=== PATIENT | female | born 1950 | race Caucasian/White ===

== ENCOUNTER 2016-12-02 12:06 | Emergency (ER) | payer MEDICARE ==
[~2016-12-02] VITALS: Ht 165.1 cm; Wt 75.0 kg
[~2016-12-02 12:06] MED LIST: AMLO5TAB2 PO; CARV6.252 PO; COZA100T PO; CYTO5TAB PO; ESTR0.5T PO; HYDR25TA5 PO; PROZ20CA11 PO; SYNT112T PO
[2016-12-02 12:07] VITALS: BP 204/82; PULSE 80; RESP 20; TEMP 98.5; O2SAT 96
[2016-12-02 12:16] VITALS: BP 193/82; PULSE 84; RESP 18
--- NOTE | 2016-12-02 12:16 | PD ---
Physical Exam Date Seen by Provider: December 02, 2016 Time Seen by Provider: 12:12 Narrative 66 YOWF C/O LBP MORE ON THE R. H/O CHRONIC BACK PAIN. NO N/V/D. NO ABD PAIN OR BLADDER PROBLEMS . PAIN 6/10 VS NOTED wating for bed asignment Data Data Last Documented VS Vital Signs Date Time Temp Pulse Resp B/P Pulse Ox O2 Delivery O2 Flow Rate FiO2 12/02/16 12:07 98.5 80 20 204/82 96 Room Air [facility] Medical Record Reviewed: No Supervised Visit with SUSAN: Bruce Rice December 02, 2016 12:15
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
[2016-12-02] MEDS ORDERED: [UNRECOGNIZED DRUG - REMARK] (12:27)
[2016-12-02] MEDS ORDERED: ROBA500T PO (12:29)
[2016-12-02 12:39] VITALS: BP 145/64; PULSE 72; RESP 20
== END 2016-12-02 12:47 | disposition home or self-care (01) ==
LOC: NEPK 12:06
DX: M54.5 Low back pain (principal); G89.29 Other chronic pain; M54.9 Dorsalgia, unspecified; I34.1 Nonrheumatic mitral (valve) prolapse; I10 Essential (primary) hypertension; E05.00 Thyrotoxicosis with diffuse goiter without thyrotoxic crisis or storm
CPT/HCPCS: 99283

== ENCOUNTER 2017-06-18 20:20 | Inpatient (IN) | payer MEDICARE ==
[~2017-06-18] VITALS: Ht 170.2 cm; Wt 80.9 kg
[2017-06-18] VITALS (10 sets, daily range): BP systolic 163–242; BP diastolic 74–120; PULSE 62–75; RESP 16–18; O2SAT 96–99
[~2017-06-18 20:20] MED LIST changes: -AMLO5TAB2 PO; +ASPI81TA23 PO; -CYTO5TAB PO; -ESTR0.5T PO; +EZET1TAB8 PO; -HYDR25TA5 PO; +IBUP1TAB5 PO; +LIOT5TAB3 PO; +TRIA37.5 PO
[2017-06-18] MEDS ORDERED: SODIUM CHLOR 0.9% 1000 ML INJ 1,000 ML IV ONE (20:45)
[2017-06-18] MEDS ORDERED: PROCHLORPERAZINE INJ 10 MG/2 ML VIAL IV PUSH ONE (20:45)
[2017-06-18] MEDS ORDERED: SODIUM CHLORIDE 0.9% FLUSH 10 ML FLUSH IVF PRN (20:45)
[2017-06-18] MEDS ORDERED: diphenhydrAMINE HCL 50 MG/ML VIAL IV PUSH ONE (20:45)
[2017-06-18] MEDS ORDERED: KETOROLAC TROMETHAMINE 30 MG/ML (IVP) VIAL IV PUSH ONE (20:45)
--- NOTE | 2017-06-18 20:45 | PD ---
HPI Chief Complaint: Cardiac Complaint Time Seen by Provider: 20:40 Travel History International Travel<30 days: No Contact w/Intl Traveler<30days: No Traveled to known affect area: No History of Present Illness HPI 58-year-old female with history of hypertension, presents to emergency department for evaluation. Pt reports last evening around 8pm she had a sudden onset of a frontal headache and left neck ache which caused her to check her blood pressure. It was elevated. Patient took her blood pressure medication as prescribed. Headache persisted throughout today and patient's blood pressure has been persistently elevated. She denies any chest pain or tightness. She states she has felt intermittently short of breath. She has had no nausea vomiting. No other focal deficits or weakness. Patient has no other symptoms to report. PFSH Past Medical History Autoimmune Disease: No Blood Disorders: No Heart Rhythm Problems: No Cancer: No Cardiac Catheterization: No Cardiovascular Problems: Yes (MITRAL VALVE PROLAPSE) High Cholesterol: No Congestive Heart Failure: No Diabetes: No Diminished Hearing: No Hypertension: Yes Psychiatric: No Reproductive: Yes (TOTAL HYSTERECTOMY 1974) Thyroid Disease: Yes (GRAVES DISEASE) Tetanus Vaccination: Unknown Influenza Vaccination: No Past Surgical History Abdominal Surgery: Yes Appendectomy: Yes Cardiac Surgery: Yes (CARIDAC CATH) Cholecystectomy: Yes Coronary Artery Bypass Graft: No Genitourinary Surgery: No Hysterectomy: Yes Pacemaker: No Social History Alcohol Use: Yes (1 GLASS WINE EVERY NIGHT) Tobacco Use: No Substance Use: No Allergies-Medications (Allergen,Severity, Reaction): Coded Allergies: morphine (Unverified Allergy, Severe, Agitated, 06/18/17) nitrofurantoin (Unverified Allergy, Severe, 06/18/17) oxycodone (Unverified Allergy, Severe, 06/18/17) penicillin G (Unverified Allergy, Severe, Hives, 06/18/17) valsartan (Unverified Allergy, Severe, Hives, 06/18/17) Reported Meds & Prescriptions Reported Meds & Active Scripts Active Reported Ezetimibe 10 Mg Tab 10 Mg PO HS Liothyronine (Liothyronine Sodium) 5 Mcg Tab 5 Mcg PO DAILY Triamterene-Hydrochlorothiazide 37.5-25 Mg Tab 1 Tab PO DAILY Aspirin EC (Aspirin) 81 Mg Tabdr 81 Mg PO DAILY Ibuprofen 400 Mg Tab 400 Mg PO Q8H PRN Cozaar (Losartan Potassium) 100 Mg Tab 100 Mg PO DAILY Synthroid (Levothyroxine Sodium) 112 Mcg Tab 112 Mcg PO DAILY Prozac (Fluoxetine HCl) 20 Mg Cap 20 Mg PO DAILY Carvedilol 6.25 Mg Tab 6.25 Mg PO BID Review of Systems Except as stated in HPI: all other systems reviewed are Neg Physical Exam Narrative GENERAL: Well-nourished female patient, sitting in bed in no acute distress. SKIN: Warm and dry. HEAD: Atraumatic. Normocephalic. EYES: No scleral icterus. No injection or drainage. EOMIs. PERRL ENT: No nasal bleeding or discharge. Mucous membranes pink and moist. NECK: Trachea midline. No JVD. CARDIOVASCULAR: Regular rate and rhythm. RESPIRATORY: No accessory muscle use. Clear to auscultation. Breath sounds equal bilaterally. GASTROINTESTINAL: Abdomen soft, non-tender, nondistended. Hepatic and splenic margins not palpable. MUSCULOSKELETAL: Extremities without clubbing, cyanosis, or edema. No obvious deformities. NEUROLOGICAL: Awake and alert. No obvious cranial nerve deficits. Motor grossly within normal limits. Five out of 5 muscle strength in the arms and legs. Normal speech. PSYCHIATRIC: Appropriate mood and affect; insight and judgment normal. Data Data Last Documented VS Vital Signs Date Time Temp Pulse Resp B/P (MAP) Pulse Ox O2 Delivery O2 Flow Rate FiO2 06/18/17 22:13 62 18 181/74 (109) 98 Room Air Orders Orders Electrocardiogram (06/18/17 20:43) Basic Metabolic Panel (Bmp) (06/18/17 20:43) Complete Blood Count With Diff (06/18/17 20:43) Magnesium (Mg) (06/18/17 20:43) Prothrombin Time / Inr (Pt) (06/18/17 20:43) Act Partial Throm Time (Ptt) (06/18/17 20:43) Ecg Monitoring (06/18/17 20:43) Bilateral Bp Monitoring (06/18/17 20:43) Iv Access Insert/Monitor (06/18/17 20:43) Oximetry (06/18/17 20:43) Oxygen Administration (06/18/17 20:43) Sodium Chloride 0.9% Flush (Ns Flush) (06/18/17 20:45) Ct Brain W/O Iv Contrast(Rout) (06/18/17 ) Ketorolac Inj (Toradol Inj) (06/18/17 20:45) Diphenhydramine Inj (Benadryl Inj) (06/18/17 20:45) Prochlorperazine Inj (Compazine Inj) (06/18/17 20:45) Sodium Chlor 0.9% 1000 Ml Inj (Ns 1000 M (06/18/17 20:45) Hydralazine Inj (Apresoline Inj) (06/18/17 22:00) Nicardipine Inj (Cardene Inj) (06/18/17 22:00) Labs Laboratory Tests Test 06/18/17 21:00 White Blood Count 9.8 TH/MM3 Red Blood Count 4.25 MIL/MM3 Hemoglobin 14.2 GM/DL Hematocrit 41.2 % Mean Corpuscular Volume 96.8 FL Mean Corpuscular Hemoglobin 33.4 PG Mean Corpuscular Hemoglobin Concent 34.5 % Red Cell Distribution Width 14.9 % Platelet Count 348 TH/MM3 Mean Platelet Volume 8.0 FL Neutrophils (%) (Auto) 66.6 % Lymphocytes (%) (Auto) 20.2 % Monocytes (%) (Auto) 9.0 % Eosinophils (%) (Auto) 3.3 % Basophils (%) (Auto) 0.9 % Neutrophils # (Auto) 6.5 TH/MM3 Lymphocytes # (Auto) 2.0 TH/MM3 Monocytes # (Auto) 0.9 TH/MM3 Eosinophils # (Auto) 0.3 TH/MM3 Basophils # (Auto) 0.1 TH/MM3 CBC Comment DIFF FINAL Differential Comment Prothrombin Time 9.4 SEC Prothromb Time International Ratio 0.9 RATIO Activated Partial Thromboplast Time 21.0 SEC Blood Urea Nitrogen 15 MG/DL Creatinine 1.00 MG/DL Random Glucose 94 MG/DL Calcium Level 9.1 MG/DL Magnesium Level 2.0 MG/DL Sodium Level 138 MEQ/L Potassium Level 4.0 MEQ/L Chloride Level 101 MEQ/L Carbon Dioxide Level 30.4 MEQ/L Anion Gap 7 MEQ/L Estimat Glomerular Filtration Rate 55 ML/MIN MDM Medical Decision Making Medical Screen Exam Complete: Yes Emergency Medical Condition: Yes Medical Record Reviewed: Yes Differential Diagnosis Hypertension versus hypertension urgency versus headache cluster versus migraine versus intracranial hemorrhage Narrative Course 66-year-old female presents to department for evaluation of headache and elevated blood pressure. Patient's neuro exam is nonfocal. I have discussed the patient with my attending who recommends first treating her headache. This is complete and patient's blood pressure remains elevated. Patient is sent for CT of her brain and is given medication for her blood pressure. Laboratory Tests Test 06/18/17 21:00 White Blood Count 9.8 TH/MM3 Red Blood Count 4.25 MIL/MM3 Hemoglobin 14.2 GM/DL Hematocrit 41.2 % Mean Corpuscular Volume 96.8 FL Mean Corpuscular Hemoglobin 33.4 PG Mean Corpuscular Hemoglobin Concent 34.5 % Red Cell Distribution Width 14.9 % Platelet Count 348 TH/MM3 Mean Platelet Volume 8.0 FL Neutrophils (%) (Auto) 66.6 % Lymphocytes (%) (Auto) 20.2 % Monocytes (%) (Auto) 9.0 % Eosinophils (%) (Auto) 3.3 % Basophils (%) (Auto) 0.9 % Neutrophils # (Auto) 6.5 TH/MM3 Lymphocytes # (Auto) 2.0 TH/MM3 Monocytes # (Auto) 0.9 TH/MM3 Eosinophils # (Auto) 0.3 TH/MM3 Basophils # (Auto) 0.1 TH/MM3 CBC Comment DIFF FINAL Differential Comment Prothrombin Time 9.4 SEC Prothromb Time International Ratio 0.9 RATIO Activated Partial Thromboplast Time 21.0 SEC Blood Urea Nitrogen 15 MG/DL Creatinine 1.00 MG/DL Random Glucose 94 MG/DL Calcium Level 9.1 MG/DL Magnesium Level 2.0 MG/DL Sodium Level 138 MEQ/L Potassium Level 4.0 MEQ/L Chloride Level 101 MEQ/L Carbon Dioxide Level 30.4 MEQ/L Anion Gap 7 MEQ/L Estimat Glomerular Filtration Rate 55 ML/MIN CT imaging results a Questionable small 4 mm hemorrhage near the foramen of Juarez on the left. This could be reevaluated with close followup CT. Patient does remain hypertensive. Carmelina drwoody as ordered. A call has been placed to neurosurgeon, Dr. Vargas. Results are discussed with the patient. [id number] Vargas. He will review the film and call me back with recommendation [id number] Vargas. He does request admission with follow-up CT in the morning. Consult will be placed with him. Patient's hypertension and Cardene drip, patient will need to be in the unit. I spoke with Dr. Solano. Patient will be admitted to the hydro[facility]inist service. Diagnosis Primary Impression: Hypertensive urgency Additional Impression: ICH (intracerebral hemorrhage) Admitting Information Admitting Physician Requests: Admit Condition: Stable Sarai Machuca Jun 18, 2017 20:45
[2017-06-18 21:30] LABS: AUTOMATED NEUTROPHIL # 6.5 TH/MM3 (1.8-7.7); BASOPHIL # 0.1 TH/MM3 (0-0.2); BASOPHIL % 0.9 % (0.0-2.0); EOSINOPHIL # 0.3 TH/MM3 (0-0.4); EOSINOPHIL % 3.3 % (0.0-4.0); HEMATOCRIT 41.2 % (35.0-46.0); HEMO FLAGS DIFF FINAL; LYMPH % 20.2 % (9.0-44.0); MEAN CELL VOLUME 96.8 FL (80.0-100.0); MEAN CORPUSCULAR HEMOGLOBIN 33.4 PG (27.0-34.0); MEAN CORPUSCULAR HGB CONC 34.5 % (32.0-36.0); NEUT % 66.6 % (16.0-70.0); PLATELET COUNT 348 TH/MM3 (150-450); RED BLOOD COUNT 4.25 MIL/MM3 (4.00-5.30); RED CELL DISTRIBUTION WIDTH 14.9 % (11.6-17.2); WHITE BLOOD COUNT 9.8 TH/MM3 (4.0-11.0)
--- NOTE | 2017-06-18 21:52 | RADRPT ---
EXAM DATE/TIME: 06/18/2017 21:09 [facility] COMPARISON: No previous studies available for comparison. INDICATIONS : Headaches with high blood pressure. RADIATION DOSE: 36.73 CTDIvol (mGy) MEDICAL HISTORY : Cardiovascular disease. Hypertension. SURGICAL HISTORY : Appendectomy. Cholecystectomy.Hysterectomy. ENCOUNTER: Initial ACUITY: 1 day PAIN SCALE: 10/10 LOCATION: Bilateral cranial TECHNIQUE: Multiple contiguous axial images were obtained of the head. Using automated exposure control and adj ustment of the mA and/or kV according to patient size, radiation dose was kept as low as reasonably a chievable to obtain optimal diagnostic quality images. DICOM format image data is available electro nically for review and comparison. FINDINGS: There is a questionable small 4 mm hemorrhage in the left foramen of Juarez. No hydrocephalus. No par enchymal hemorrhage identified. No mass effect or shift. CONCLUSION: 1. Questionable small 4 mm hemorrhage near the foramen of Juarez on the left. This could be reevaluat ed with close followup CT. Bruce Manzo MD on June 18, 2017 at 21:47 Board Certified Radiologist. This report was verified electronically.
[2017-06-18 21:55] LABS: INTERNATIONAL NORMALIZED RATIO 0.9 RATIO
[2017-06-18] MEDS ORDERED: hydrALAZINE HCL 20 MG/ML VIAL IV PUSH ONE (22:00)
[2017-06-18] MEDS ORDERED: niCARdipine INJ 25 MG in SODIUM CHLOR 0.9% 250 ML INJ 240 ML IV PRN (22:00)
[2017-06-18 22:04] LABS: BICARBONATE 30.4 MEQ/L (21.0-32.0)
[2017-06-18 22:37] LABS: APTT (PATIENT) 28.5 SEC (24.3-30.1); PROTHROMBIN TIME - PATIENT 9.9 SEC (9.8-11.6)
[2017-06-18] MEDS ORDERED: ACETAMINOPHEN/HYDROcodone 325 MG/5 MG TAB PO ONE (22:45)
[2017-06-18] MEDS ORDERED: ONDANSETRON HCL 4 MG/2 ML VIAL IV PUSH PRN (23:45)
[2017-06-18] MEDS ORDERED: MAGNESIUM HYDROXIDE SUSP 30 ML CUP PO PRN (23:45)
[2017-06-18] MEDS ORDERED: BISACODYL 10 MG SUPP RECTAL PRN (23:45)
[2017-06-18] MEDS ORDERED: CHLORHEXIDINE GLUCONATE 2 % 1 PACK (2 CLOTHS) TOP PRN (23:45)
[2017-06-18] MEDS ORDERED: LACTULOSE SYRUP 20 GM/30 ML CUP PO PRN (23:45)
[2017-06-18] MEDS ORDERED: SENNOSIDES 8.6 MG TAB PO PRN (23:45)
[2017-06-18] MEDS ORDERED: SODIUM CHLORIDE 0.9% FLUSH 10 ML FLUSH IV FLUSH PRN (23:45)
[2017-06-18] MEDS ORDERED: RESP: ALBUTEROL 2.5 MG/IPRATROPIUM 0.5 MG NEB (PRN) INH (23:45)
[2017-06-18] MEDS ORDERED: MISCELLANEOUS NURSING INFORMATION XX SCH (23:45)
[2017-06-18] MEDS ORDERED: MORPHINE SULFATE 4 MG/ML INJ IV PUSH PRN (23:45)
--- NOTE | 2017-06-18 23:56 | HHI.HP ---
HPI Service Critical Care Medicine Primary Care Physician Betty Camejo MD Admission Diagnosis hypertensive urgency; questionable ICH Diagnosis: Travel History International Travel<30 Days: No Contact w/Intl Traveler <30 Da: No Traveled to Known Affected Are: No History of Present Illness 58-year-old female with history of hypertension, Graves' disease, presents for evaluation of frontal headache and left neck pain and tingling in her left arm. The patient reports that last last evening around 8pm she experienced a sudden onset of a frontal headache. She has checked her blood pressure which was extremely elevated. Patient took her blood pressure medication as prescribed. Her headache persisted throughout today and patient's blood pressure has been persistently elevated. She denies any chest pain, or tightness. However she has felt intermittently short of breath. She has had no nausea vomiting. No other focal deficits or weakness. Review of Systems Constitutional: DENIES: Diaphoretic episodes, Fatigue, Fever, Weight gain, Weight loss, Chills, Dizziness, Change in appetite, Night Sweats Endocrine: DENIES: Abnorml menstrual pattern, Heat/cold intolerance, Polydipsia , Polyuria, Polyphagia Eyes: DENIES: Blurred vision, Diplopia, Eye inflammation, Eye pain, Vision loss , Photosensitivity, Double Vision Ears, nose, mouth, throat: DENIES: Tinnitus, Hearing loss, Vertigo, Nasal discharge, Oral lesions, Throat pain, Hoarseness, Ear Pain, Running Nose, Epistaxis, Sinus Pain, Toothache, Odynophagia Respiratory: COMPLAINS OF: Shortness of breath, DENIES: Apneas, Cough, Snoring , Wheezing, Hemoptysis, Sputum production Cardiovascular: DENIES: Chest pain, Palpitations, Syncope, Dyspnea on Exertion , PND, Lower Extremity Edema, Orthopnea, Claudication Gastrointestinal: DENIES: Abdominal pain, Black stools, Bloody stools, Constipation, Diarrhea, Nausea, Vomiting, Difficulty Swallowing, Anorexia Genitourinary: DENIES: Abnormal vaginal bleeding, Dysmenorrhea, Dyspareunia, Sexual dysfunction, Urinary frequency, Urinary incontinence, Urgency, Hematuria , Dysuria, Nocturia, Vaginal discharge Musculoskeletal: COMPLAINS OF: Neck pain, DENIES: Joint pain, Muscle aches, Stiffness, Joint Swelling, Back pain Integumentary: DENIES: Abnormal pigmentation, Pruritus, Rash, Nail changes, Breast masses, Breast skin changes, Nipple discharge Hematologic/lymphatic: DENIES: Bruising, Lymphadenopathy Immunologic/allergic: DENIES: Eczema, Urticaria Neurologic: COMPLAINS OF: Headache, Paresthesias, DENIES: Abnormal gait, Localized weakness, Seizures, Speech Problems, Tremor, Poor Balance Psychiatric: DENIES: Anxiety, Confusion, Mood changes, Depression, Hallucinations, Agitation, Suicidal Ideation, Homicidal Ideation, Delusions Past Family Social History Allergies: Coded Allergies: morphine (Unverified Allergy, Severe, Agitated, 06/18/17) nitrofurantoin (Unverified Allergy, Severe, 06/18/17) oxycodone (Unverified Allergy, Severe, 06/18/17) penicillin G (Unverified Allergy, Severe, Hives, 06/18/17) valsartan (Unverified Allergy, Severe, Hives, 06/18/17) Past Medical History Graves' disease status post radioactive iodine treatment Hypothyroidism on replacement therapy Obstructive sleep apnea on CPAP Hypertension Status post treatment with radiation over I secondary to Graves' disease Mitral valve prolapse Postmenopausal syndrome Dyslipidemia Coronary artery disease, cardiac catheterization in 2010 with 10-20% mild luminal irregularities Depressions Chronic low back pain Chronic fatigue syndrome Past Surgical History Appendectomy Cholecystectomy Hysterectomy Breast augmentation Reported Medications Reported Meds & Active Scripts Active Reported Ezetimibe 10 Mg Tab 10 Mg PO HS Liothyronine (Liothyronine Sodium) 5 Mcg Tab 5 Mcg PO DAILY Triamterene-Hydrochlorothiazide 37.5-25 Mg Tab 1 Tab PO DAILY Aspirin EC (Aspirin) 81 Mg Tabdr 81 Mg PO DAILY Ibuprofen 400 Mg Tab 400 Mg PO Q8H PRN Cozaar (Losartan Potassium) 100 Mg Tab 100 Mg PO DAILY Synthroid (Levothyroxine Sodium) 112 Mcg Tab 112 Mcg PO DAILY Prozac (Fluoxetine HCl) 20 Mg Cap 20 Mg PO DAILY Carvedilol 6.25 Mg Tab 6.25 Mg PO BID Active Ordered Medications Current Medications Medications (Trade) Dose Ordered Sig/Nolan Route PRN Reason Start Time Stop Time Status Last Admin Dose Admin Carvedilol (Coreg) 6.25 mg BID PO 06/19/17 09:00 EZETIMIBE (Zetia) 10 mg HS PO 06/19/17 21:00 Fluoxetine HCl (PROzac) 20 mg DAILY PO 06/19/17 09:00 Levothyroxine Sodium (Synthroid) 112 mcg DAILY@0700 PO 06/19/17 07:00 Liothyronine Sodium (Cytomel) 5 mcg DAILY PO 06/19/17 09:00 Losartan Potassium (Cozaar) 100 mg DAILY PO 06/19/17 09:00 Triamterene/HCTZ (Maxzide 37.5-25 Mg) 1 tab DAILY PO 06/19/17 09:00 Sodium Chloride 1,000 ml @ 84 mls/hr [id number] IV 06/18/17 23:40 06/19/17 00:30 Sodium Chloride (NS Flush) 2 ml UNSCH PRN IV FLUSH FLUSH AFTER USING IV ACCESS 06/18/17 23:45 Sodium Chloride (NS Flush) 2 ml BID IV FLUSH 06/19/17 09:00 Acetaminophen (Tylenol) 650 mg Q6H PRN PO PAIN 1-5 AND/OR FEVER >101F 06/18/17 23:45 Morphine Sulfate (Morphine Inj) 2 mg Q2H PRN IV PUSH PAIN SCALE 6 TO 10 06/18/17 23:45 Famotidine (Pepcid Inj) 20 mg Q12HR IV PUSH 06/19/17 09:00 Ondansetron HCl (Zofran Inj) 4 mg Q6H PRN IV PUSH NAUSEA OR VOMITING 06/18/17 23:45 Albuterol/ Ipratropium (Duoneb Neb) 1 ampule Q2HR NEB PRN INH WHEEZING 06/18/17 23:45 Miscellaneous Information 1 [id number] XX 06/18/17 23:45 Chlorhexidine Gluconate (Chlorhexidine 2% Cloth) 3 pack Taper DAILY@04 TOP 06/19/17 04:00 06/15/18 03:59 Chlorhexidine Gluconate (Chlorhexidine 2% Cloth) 3 pack UNSCH PRN TOP HYGIENIC CARE 06/18/17 23:45 Senna/Docusate Sodium (Kristy-Colace) 1 tab BID PO 06/19/17 09:00 Magnesium Hydroxide (Milk Of Magnesia Liq) 30 ml Q12H PRN PO Mild constipation 06/18/17 23:45 Sennosides (Senokot) 17.2 mg Q12H PRN PO Moderate constipation 06/18/17 23:45 Bisacodyl (Dulcolax Supp) 10 mg DAILY PRN RECTAL SEVERE CONSITIPATION/ IF NPO 06/18/17 23:45 Lactulose (Lactulose Liq) 30 ml DAILY PRN PO SEVERE CONSITIPATION/ IF PO 06/18/17 23:45 Nicardipine HCl 25 mg/Sodium Chloride 250 ml @ 50 mls/hr TITRATE PRN IV Blood pressure management 06/18/17 23:45 Family History Positive for heart disease. Mother with history of OH at 55. Positive flatus CORONARY artery disease in her father with coronary artery bypass graft in his 70s. Father at the age of 91 mother from the lung cancer. She has several relatives with heart disease including multiple bronchocentric times and maternal grandmother. Social History She is . She has grown children. She has a remote history of tobacco use one pack per day for approximately 25 years. She states she quit some 25 years ago. She drinks alcohol only occasionally a glass of wine she denies illicit drug abuse. She is active and exercises regularly Physical Exam Vital Signs Vital Signs Date Time Temp Pulse Resp B/P (MAP) Pulse Ox O2 Delivery O2 Flow Rate FiO2 06/18/17 23:25 183/80 (114) 06/18/17 22:55 97 217/92 06/18/17 22:13 62 18 181/74 (109) 98 Room Air 06/18/17 22:10 72 18 206/88 (127) 98 Room Air 06/18/17 21:46 68 18 213/107 (142) 98 Room Air 06/18/17 21:18 67 18 212/81 (124) 98 Room Air 06/18/17 21:07 234/107 (149) 237/110 (152) 06/18/17 20:57 98 Room Air 06/18/17 20:57 98 Room Air 06/18/17 20:36 70 16 240/120 (160) 97 Room Air 06/18/17 20:23 75 16 242/113 (156) 96 Room Air Physical Exam GENERAL: Well-nourished, well-developed patient. SKIN: Warm and dry. HEAD: Normocephalic. EYES: No scleral icterus. No injection or drainage. NECK: Supple, trachea midline. No JVD or lymphadenopathy. CARDIOVASCULAR: Regular rate and rhythm without murmurs, gallops, or rubs. RESPIRATORY: Breath sounds equal bilaterally. No accessory muscle use. GASTROINTESTINAL: Abdomen soft, non-tender, nondistended. MUSCULOSKELETAL: No cyanosis, or edema. BACK: Nontender without obvious deformity. NEURO EXAM: GCS: M 6 V 5 E 4 Mental Status: The patient is alert and oriented to person, place, and time with normal speech. Cranial Nerves: Visual acuity intact bilaterally. Visual reynoso normal in all quadrants. Pupils are round, reactive to light. Extraocular movements are intact without ptosis. Hearing is normal bilaterally. Voice is normal. Tongue protrudes midline and moves symmetrically. Reflexes: Biceps, patellar, and Achilles are 2/4 bilaterally. No clonus. Laboratory Laboratory Tests Test 06/18/17 21:00 White Blood Count 9.8 Red Blood Count 4.25 Hemoglobin 14.2 Hematocrit 41.2 Mean Corpuscular Volume 96.8 Mean Corpuscular Hemoglobin 33.4 Mean Corpuscular Hemoglobin Concent 34.5 Red Cell Distribution Width 14.9 Platelet Count 348 Mean Platelet Volume 8.0 Neutrophils (%) (Auto) 66.6 Lymphocytes (%) (Auto) 20.2 Monocytes (%) (Auto) 9.0 Eosinophils (%) (Auto) 3.3 Basophils (%) (Auto) 0.9 Neutrophils # (Auto) 6.5 Lymphocytes # (Auto) 2.0 Monocytes # (Auto) 0.9 Eosinophils # (Auto) 0.3 Basophils # (Auto) 0.1 CBC Comment DIFF FINAL Differential Comment Prothrombin Time 9.9 Prothromb Time International Ratio 0.9 Activated Partial Thromboplast Time 28.5 Blood Urea Nitrogen 15 Creatinine 1.00 Random Glucose 94 Calcium Level 9.1 Magnesium Level 2.0 Sodium Level 138 Potassium Level 4.0 Chloride Level 101 Carbon Dioxide Level 30.4 Anion Gap 7 Estimat Glomerular Filtration Rate 55 Result Diagram: 06/18/17209906/18/172099 Caprini VTE Risk Assessment Caprini VTE Risk Assessment: No/Low Risk (score <= 1) VTE Pharm Contraindication: Hemorrhage Caprini Risk Assessment Model Point Value = 1 Point Value = 2 Point Value = 3 Point Value = 5 Age 41-60 Minor surgery BMI > 25 kg/m2 Swollen legs Varicose veins or History of unexplained or recurrent spontaneous Oral contraceptives or hormone replacement Sepsis (< 1 month) Serious lung disease, including pneumonia (< 1 month) Abnormal pulmonary function Acute myocardial infarction Congestive heart failure (< 1 month) History of inflammatory bowel disease Medical patient at bed rest Age 61-74 Arthroscopic surgery Major open surgery (> 45 min) Laparoscopic surgery (> 45 min) Malignancy Confined to bed (> 72 hours) Immobilizing plaster cast Central venous access Age >= 75 History of VTE Family history of VTE Factor V Leiden Prothrombin [id number] Lupus anticoagulant Anticardiolipin antibodies Elevated serum homocysteine Heparin-induced thrombocytopenia Other congenital or acquired thrombophilia Stroke (< 1 month) Elective arthroplasty Hip, pelvis, or leg fracture Acute spinal cord injury (< 1 month) Prophylaxis Regimen Total Risk Factor Score Risk Level Prophylaxis Regimen 0-1 Low Early ambulation 2 Moderate Order ONE of the following: *Sequential Compression Device (SCD) *Heparin 5000 units SQ BID 3-4 Higher Order ONE of the following medications: *Heparin 5000 units SQ TID *Enoxaparin/Lovenox 40 mg SQ daily (WT < 150 kg, CrCl > 30 mL/min) *Enoxaparin/Lovenox 30 mg SQ daily (WT < 150 kg, CrCl > 10-29 mL/min) *Enoxaparin/Lovenox 30 mg SQ BID (WT < 150 kg, CrCl > 30 mL/min) AND/OR *Sequential Compression Device (SCD) 5 or more Highest Order ONE of the following medications: *Heparin 5000 units SQ TID (Preferred with Epidurals) *Enoxaparin/Lovenox 40 mg SQ daily (WT < 150 kg, CrCl > 30 mL/min) *Enoxaparin/Lovenox 30 mg SQ daily (WT < 150 kg, CrCl > 10-29 mL/min) *Enoxaparin/Lovenox 30 mg SQ BID (WT < 150 kg, CrCl > 30 mL/min) AND *Sequential Compression Device (SCD) Assessment and Plan Assessment and Plan Intracranial bleed - Questionable small tiny about 4 mm close to foramina Monro - No surgical intervention indicated - Normal coags profile - Blood pressure control with SBP less than 140 - Repeat CT head in 24 hours - Further management per neurosurgery Hypertensive urgency - Continue home meds - Cardene drip to keep SBP less than 140 Hypothyroidism - Levothyroxin per home dosing Depressions and anxiety - Prozac DVT GI prophylaxis - Teds SCDs - No pharmacological DVT prophylaxis due to questionable ICH - Pepcid Critical Care: The total critical care time was 35 minutes. Time to perform other separately billable procedures was not included in the critical care time. Eber Solano MD Jun 18, 2017 11:56 pm
[2017-06-19] VITALS (15 sets, daily range): BP systolic 124–155; BP diastolic 58–76; PULSE 70–78; RESP 13–26; TEMP 97.4–98.7; O2SAT 93–99
[2017-06-19] MEDS: SODIUM CHLOR 0.9% 1000 ML INJ 1,000 ML IV SCH ×2 (00:30→11:35)
[2017-06-19] MEDS: niCARdipine INJ 25 MG in SODIUM CHLOR 0.9% 250 ML INJ 240 ML IV PRN ×5 (02:56→19:54)
[2017-06-19] MEDS: CHLORHEXIDINE GLUCONATE 2 % 1 PACK (2 CLOTHS) TOP SCH (04:00)
[2017-06-19 04:48] LABS: BASOPHIL % 0.4 % (0.0-2.0); EOSINOPHIL # 0.2 TH/MM3 (0-0.4); EOSINOPHIL % 2.1 % (0.0-4.0); HEMO FLAGS DIFF FINAL; LYMPHOCYTE # 1.3 TH/MM3 (1.0-4.8); MEAN CELL VOLUME 96.7 FL (80.0-100.0); MEAN CORPUSCULAR HEMOGLOBIN 32.2 PG (27.0-34.0); MEAN CORPUSCULAR HGB CONC 33.3 % (32.0-36.0); NEUT % 77.5 % (16.0-70.0); PLATELET COUNT 334 TH/MM3 (150-450); RED BLOOD COUNT 3.93 MIL/MM3 (4.00-5.30); RED CELL DISTRIBUTION WIDTH 14.8 % (11.6-17.2); WHITE BLOOD COUNT 10.3 TH/MM3 (4.0-11.0)
[2017-06-19 05:01] LABS: ANION GAP 8 MEQ/L (5-15); AST (GOT) 23 U/L (15-37); BICARBONATE 26.5 MEQ/L (21.0-32.0); BLOOD UREA NITROGEN 11 MG/DL (7-18); CHLORIDE 107 MEQ/L (98-107); GLOMERULAR FILTRATION RATE 103 ML/MIN (>89); MAGNESIUM 1.8 MG/DL (1.5-2.5); POTASSIUM 3.7 MEQ/L (3.5-5.1); SODIUM (NA) 141 MEQ/L (136-145)
[2017-06-19 05:08] LABS: ALKALINE PHOSPHATASE 77 U/L (45-117); ALT (GPT) 37 U/L (10-53); TOTAL BILIRUBIN ADULT 0.5 MG/DL (0.2-1.0)
[2017-06-19] MEDS: ACETAMINOPHEN 325 MG TAB PO PRN ×2 (05:59→15:10)
[2017-06-19] MEDS: LEVOTHYROXINE SODIUM 112 MCG TAB PO SCH (06:43)
--- NOTE | 2017-06-19 07:03 | EKG ---
Date Performed: 06/18/2017 Time Performed: 20:43:50 PTAGE: 66 years EKG: Sinus rhythm POSSIBLE LEFT ATRIAL ENLARGEMENT INFERIOR MYOCARDIAL INFARCTION ABNORMAL ECG PREVIOUS TRACING : 10/30/2015 09.15 No significant change from previous tracing noted. DOCTOR: Rafael Can Interpretating Date/Time 06/19/2017 07:02:12
[2017-06-19] MEDS: LOSARTAN 50 MG TAB PO SCH (08:46)
[2017-06-19] MEDS: FLUoxetine HCL 20 MG CAP PO SCH (08:46)
[2017-06-19] MEDS: SODIUM CHLORIDE 0.9% FLUSH 10 ML FLUSH IV FLUSH SCH ×2 (08:47→21:00)
[2017-06-19] MEDS ORDERED: CARVEDILOL 6.25 MG TAB PO SCH (09:00)
--- NOTE | 2017-06-19 09:39 | HHI.CCPN ---
Subjective Remarks/Hospital Course 66-year-old female with history of hypertension, Graves' disease, presents for evaluation of frontal headache and left neck pain and tingling in her left arm. The patient reports that last last evening around 8pm she experienced a sudden onset of a frontal headache. She has checked her blood pressure which was extremely elevated. Patient took her blood pressure medication as prescribed. Her headache persisted throughout today and patient's blood pressure has been persistently elevated. She denies any chest pain, or tightness. However she has felt intermittently short of breath. She has had no nausea vomiting. No other focal deficits or weakness. Subjective 06/19: Afebrile. Currently resting in bed in no acute distress. Episode of nausea overnight. Receive 1 dose of ketorolac 3 mg 1 overnight Objective Vital Signs Date Time Temp Pulse Resp B/P (MAP) Pulse Ox O2 Delivery O2 Flow Rate FiO2 06/19/17 09:24 72 172/73 06/19/17 08:00 98.0 13 93 06/19/17 07:00 Room Air 2.00 Intake and Output 06/19/17 06/19/17 06/20/17 08:00 16:00 00:00 Intake Total 877 ml Output Total 250 ml Balance 627 ml Result Diagram: 06/19/17 0411 06/19/[address] brain - 06/18 - possible 4 mm hemorrhage foramen of [place] Objective Remarks GENERAL: 66-year-old AA female resting in bed in no acute distress SKIN: Warm and dry. No rash HEAD: Normocephalic. EYES: No scleral icterus. No injection or drainage. NECK: Supple, trachea midline. No JVD or lymphadenopathy. CARDIOVASCULAR: Regular rate and rhythm without murmurs, gallops, or rubs. RESPIRATORY: Breath sounds equal bilaterally. No accessory muscle use. GASTROINTESTINAL: Abdomen soft, non-tender, nondistended. MUSCULOSKELETAL: No improvement. BACK: Nontender without obvious deformity. NEURO EXAM: Cranial nerves II through XII grossly intact. Strength is equal and symmetric. Normal sensation. Gait was not assessed A/P Assessment and Plan Neuro/Psych: Tiny intracerebral hemorrhage - possibly Depression disorder NOS - CT brain 06/18 - Questionable small tiny about 4 mm close to foramina Monro - No surgical intervention indicated - Normal coags profile - Keep systolic Blood pressure control with SBP less than 140 - Repeat CT head in 24 hours - Further management per neurosurgery - Continue fluoxetine 20 mg by mouth daily for depression Holding aspirin 81 mg daily and ibuprofen 400 milligrams 3 times a day in light of possible acute intracerebral hemorrhage Acetaminophen 650 mg by mouth every 4 hours when necessary pain once 5/fever CV: Hypertensive urgency Dyslipidemia Mitral valve prolapse Nonobstructive coronary artery disease -Increase carvedilol from 6.25 twice a day increased to 12.5 twice a day, losartan 100 mg daily and triamterene/hydrochlorothiazide 37.5/25 one tablet daily for hypertension Continue ezetimibe 10 mg daily for dyslipidemia -Nicardipine drip to keep SBP less than 160 EKG revealed old Q waves in inferior leads. Left atrial enlargement. Troponin 0.023 Resp: Obstructive sleep apnea - CPAP Nasal cannula if indicated to maintain saturations greater than or equal to 90% Incentive spirometry while awake As needed albuterol aerosols to 2 hours when necessary GI: Hypoalbuminemia Continue heart healthy diet Femoral to pain for GI prophylaxis Docusate sodium/senna 1 tablet twice a day for bowel regimen : No indication for Lovett catheter Endo: History of Graves' disease -history of radiation/radioactive iodine currently hypothyroid Continue levothyroxine 112 mcg 1 tablet daily and liothyronine 5 mg daily Check TSH Sliding-scale insulin if indicated to maintain euglycemia Renal: Creatinine currently within normal limits Monitor urine output Accurate I's and O's Heme: CBC within normal limits Does not meet threshold for blood transfusion Coags within normal limits ID: Monitor for infection FEN: Replace electrolytes as clinically indicated MSK: Chronic low back pain - history of ACE PT evaluate and treat Access - Utilize peripheral IV. Central line if indicated Prophylaxis - GI - famotidine - DVT - SCD/holding pharmacological prophylaxis in light of possible intracerebral hemorrhage Level II follow-up Hypothyroidism - Levothyroxin per home dosing Depressions and anxiety - Prozac DVT GI prophylaxis - Teds SCDs - No pharmacological DVT prophylaxis due to questionable ICH - Pepcid Critical Care: The total critical care time was 35 minutes. Time to perform other separately billable procedures was not included in the critical care time. David Joshi MD Jun 19, 2017 09:39
[2017-06-19] MEDS: DOCUSATE SODIUM 50 MG/SENNA 8.6 MG TAB PO SCH ×2 (10:14→19:55)
[2017-06-19] MEDS: LIOTHYRONINE SODIUM 5 MCG TAB PO SCH (10:15)
[2017-06-19] MEDS: TRIAMTERENE/HCTZ 37.5 MG/25 MG TAB PO SCH (10:15)
[2017-06-19] MEDS: FAMOTIDINE 20 MG/2 ML VIAL IV PUSH SCH ×2 (10:19→19:55)
--- NOTE | 2017-06-19 12:01 | RADRPT ---
EXAM DATE/TIME: 06/19/2017 11:27 [facility] COMPARISON: No previous studies available for comparison. INDICATIONS : Abnormal labs. MEDICAL HISTORY : Amblyopia OD. Graves disease. Mitral valve prolapse. Hypertension. Bronchitis. Right lung nodule. CAD . SURGICAL HISTORY : Appendectomy. Cholecystectomy. Hysterectomy. Cataracts removal. C-sestion. ENCOUNTER: Initial ACUITY: 1 day PAIN SCORE: 2/10 LOCATION: Bilateral flank MEASUREMENTS: RIGHT KIDNEY: 9.0 x 5.9 x 4.7 cm LEFT KIDNEY: 9.3 x 5.5 x 5.4 cm FINDINGS: RIGHT KIDNEY: Renal cortex is normal in thickness and echotexture. No hydronephrosis, stone, or mass. LEFT KIDNEY: Renal cortex is normal in thickness and echotexture. No hydronephrosis, stone, or mass. BLADDER: Within normal limits given the degree of distension. CONCLUSION: Normal examination. Nikos Plata MD on June 19, 2017 at 11:58 Board Certified Radiologist. This report was verified electronically.
[2017-06-19] MEDS ORDERED: IOHEXOL 350 MG/ML 10 ML VIAL (for RAD DIAG) IVCONTRAST ONE (14:30)
--- NOTE | 2017-06-19 15:43 | RADRPT ---
EXAM DATE/TIME: 06/19/2017 13:32 [facility] COMPARISON: CT BRAIN W/O CONTRAST, June 18, 2017, 21:09. INDICATIONS : Abnormal CT. MEDICAL HISTORY : Hypertension. Graves Disease SURGICAL HISTORY : section. Hysterectomy. Appendectomy. cholecystectomy ENCOUNTER: Subsequent ACUITY: 2 day PAIN SCORE: 0/10 LOCATION: cranial TECHNIQUE: Multiplanar, multisequence MRI of the brain was performed without contrast. FINDINGS: There are a couple of punctate foci of spontaneous T1 signal in the region of the anterior fornix and anterior commissure best seen on the sagittal T1 series 5 image 14 which likely correlate with the s pontaneous density noted on the CT examination. These could be small foci of hemorrhage. The brain is otherwise symmetric and unremarkable. There is no evidence of mass or shift. Nothing to suggest acut e infarction. The extracranial structures are benign and intact. CONCLUSION: Punctate foci of altered signal in the region of the anterior fornix, potentially small foci of hemor rhage as suggested on the comparison CT. I concur with the recommendation for followup with CT. Nikos Plata MD on June 19, 2017 at 15:08 Board Certified Radiologist. This report was verified electronically.
[2017-06-19 16:07] LABS: BLOOD, URINE NEG (NEG); COMMENT (UR) CULT NOT INDICATED; CULTURE IF INDICATED CULT NOT INDICATED; GLUCOSE,URINE NEG (NEG); KETONE, URINE NEG (NEG); NITRITE,URINE NEG (NEG); PH, URINE 7.5 (5.0-8.5); SQUAMOUS EPITHELIAL CELL URINE 1 /hpf (0-5); URINE COLOR LIGHT-YELLOW (YELLW/STRAW)
--- NOTE | 2017-06-19 16:11 | RADRPT ---
EXAM DATE/TIME: 06/19/2017 14:21 [facility] COMPARISON: No previous studies available for comparison. INDICATIONS : Renal artery stenosis IV CONTRAST: 95 cc Omnipaque 350 (iohexol) IV RADIATION DOSE: 15.13 CTDIvol (mGy) MEDICAL HISTORY : None SURGICAL HISTORY : None. ENCOUNTER: Initial ACUITY: 1 day PAIN SCALE: 0/10 LOCATION: abdomen TECHNIQUE: Volumetric scanning was performed using a multi-row detector CT scanner. The data was post processed with a variety of visualization algorithms including full volume maximum intensity projection, multi -planar sliding thin slab reformation, curved planar reformation, and surface rendering techniques. Using automated exposure control and adjustment of the mA and/or kV according to patient size, radiat ion dose was kept as low as reasonably achievable to obtain optimal diagnostic quality images. DICOM format image data is available electronically for review and comparison. FINDINGS: The abdominal aorta and iliacs are widely patent. The aortic visceral vessels are satisfactory in alicja earance. Specifically, the celiac and SMA are widely patent. The JAKE is patent. Widely patent single renal arteries are present bilaterally. There is no evidence of renal branch vessel stenosis very in the pelvis, the hypogastrics are patent bilaterally. Elsewhere on the exam, note is made of previous cholecystectomy. Mild fatty infiltration of the liver . The adrenals are symmetric and benign. CONCLUSION: No evidence of renal artery stenosis Nikos Plata MD on June 19, 2017 at 16:04 Board Certified Radiologist. This report was verified electronically.
[2017-06-19] MEDS: hydrALAZINE HCL 20 MG/ML VIAL IV PUSH PRN (17:06)
[2017-06-19] MEDS: HYDROmorphone HCL PF 0.5 MG/0.5 ML SYRINGE IV PUSH PRN ×2 (17:18→21:25)
[2017-06-19] MEDS: LABETALOL HCL 100 MG/20 ML VIAL IV PUSH PRN (17:45)
--- NOTE | 2017-06-19 18:25 | MB ---
cc: SVITLANA ALVARES ROHIT K. M.D. DATE OF CONSULTATION 06/19/17 REASON FOR CONSULTATION Left frontal horn area questionable hemorrhage. HISTORY OF PRESENT ILLNESS A 66-year-old female who had complaints of headaches associated with severe hypertension. She states she has had a history of hypertension with bouts of high blood pressure in 200s range especially the last six months to a year. She is on multiple antihypertensive medications and followed by cardiology who has been managing this. The headaches started two days ago in the evening and she checked her blood pressure, it was over 200 and subsequently it improved and then the headaches recurred again, increasing blood pressure and she presented to the emergency room last evening. She denies any nausea or vomiting. She had some transient numbness of the left upper extremity which has resolved. She was then placed on a Cardene drip and admitted to the intensive care unit. CT scan of the head obtained reveals a 4 mm area of hemorrhage along the left foramen of Monro and on the MRI scan again there are small hemorrhages seen without any hydrocephalus or further rebleeding. PAST MEDICAL HISTORY Mitral valve prolapse, hypertension, Grave's disease, hysterectomy, cardiac catheterization with mild coronary artery disease, appendectomy. Hyperlipidemia, obstructive sleep apnea, chronic low back pain, depression, breast augmentation. MEDICATIONS 1. Aspirin 81 milligrams daily. 2. Carvedilol 6.25 milligrams b.i.d. 3. Ezetimibe 10 milligrams q. h.s. 4. Prozac 20 milligrams daily. 5. Ibuprofen 400 milligrams q. 8 hours p.r.n. 6. Synthroid 112 micrograms daily. 7. Liothyronine 5 micrograms daily. 8. Cozaar 100 milligrams daily. 9. Triamterene/Hydrochlorothiazide once daily. ALLERGIES 1. MORPHINE. 2. NITROFURANTOIN. 3. OXYCODONE. 4. PENICILLIN. 5. VALSARTAN. SOCIAL HISTORY She is and is here with her. She is a former smoker and usually drinks a glass of wine on the evenings. REVIEW OF SYSTEMS Positive for headache. Positive for mild nausea. Complains of chronic blurred vision related to her Graves disease but denies diplopia. Transient numbness in the left upper extremity which has resolved. Complains of some dyspnea. Denies any chest pain. No abdominal pain or bloody stools or vomiting. Denies any urinary frequency or incontinence. Has some complaints of neck discomfort which is chronic. No fevers or chills. Denies any recent weight gain or weight loss. No history of easy bleeding or bruising. No unsteadiness in her gait, dizziness or lightheadedness. No syncopal episodes. FAMILY HISTORY Positive for coronary artery disease in father and mother. Lung cancer in father. LABORATORY FINDINGS White blood cell count 10.3, hemoglobin 12.7, platelet count of 334. PT 9.9, INR 0.9, PTT 28.5, sodium 141, potassium 3.7, BUN 11, creatinine 0.58, glucose 103. EXAMINATION VITAL SIGNS: Temperature 98.1, pulse is 70, respiratory rate 20, blood pressure 155/76, ox saturation 99% on room air. HEAD: Normocephalic, atraumatic. No Salomon or raccoon sign. NECK: Supple with no guarding or rigidity or any lymphadenopathy. CHEST: Clear to auscultation bilaterally. HEART: Regular rate, rhythm, normal S1-S2. No murmurs. ABDOMEN: Soft, nontender. No hepatosplenomegaly. EXTREMITIES: No cyanosis or deformities. SKIN: No rash or abrasions or ecchymosis noted. NEUROLOGIC: She is awake, alert. She is oriented x3. Pupils equal, reactive. Extraocular muscles are intact. Face is symmetric. Tongue is midline. She moves upper and lower extremities 5/5 strength. Negative Babinski. Speech is fluent. Light touch sensation is intact. IMPRESSION 1. Unregulated hypertension. 2. Small left frontal horn hemorrhage without any hydrocephalus or any progression on follow-up imaging study. PLAN The patient is stable from a neurosurgical standpoint and does not require any intervention. Would recommend regulation of her hypertension. Her diet and activity status can be increased as tolerated along with gastrointestinal stress ulcer and mechanical DVT prophylaxis. Discussed with the patient as well as and family at bedside. MD NIKI Wilkins/LINDA /5:38 PM /6:06 PM
[2017-06-19] MEDS: CARVEDILOL 12.5 MG TAB PO SCH (19:55)
[2017-06-19] MEDS ORDERED: EZETIMIBE 10 MG TAB PO SCH (21:00)
[2017-06-20] VITALS (14 sets, daily range): BP systolic 127–178; BP diastolic 58–78; PULSE 62–82; RESP 10–21; TEMP 97.2–98.6; O2SAT 93–99
[2017-06-20] MEDS: CHLORHEXIDINE GLUCONATE 2 % 1 PACK (2 CLOTHS) TOP SCH (04:00)
[2017-06-20] MEDS: LABETALOL HCL 100 MG/20 ML VIAL IV PUSH PRN ×3 (04:16→13:15)
[2017-06-20] MEDS: SODIUM CHLOR 0.9% 1000 ML INJ 1,000 ML IV SCH ×3 (04:40→23:20)
[2017-06-20 05:13] LABS: AUTOMATED NEUTROPHIL # 5.8 TH/MM3 (1.8-7.7); BASOPHIL % 0.3 % (0.0-2.0); EOSINOPHIL # 0.2 TH/MM3 (0-0.4); EOSINOPHIL % 2.7 % (0.0-4.0); HEMATOCRIT 40.1 % (35.0-46.0); HEMO FLAGS DIFF FINAL; LYMPH % 15.8 % (9.0-44.0); LYMPHOCYTE # 1.3 TH/MM3 (1.0-4.8); MEAN CELL VOLUME 96.8 FL (80.0-100.0); MEAN CORPUSCULAR HEMOGLOBIN 32.1 PG (27.0-34.0); MEAN CORPUSCULAR HGB CONC 33.2 % (32.0-36.0); MONO % 8.7 % (0.0-8.0); NEUT % 72.5 % (16.0-70.0); PLATELET COUNT 353 TH/MM3 (150-450); RED BLOOD COUNT 4.15 MIL/MM3 (4.00-5.30); RED CELL DISTRIBUTION WIDTH 15.1 % (11.6-17.2)
[2017-06-20] MEDS: LEVOTHYROXINE SODIUM 112 MCG TAB PO SCH (05:29)
[2017-06-20 05:42] LABS: ANION GAP 7 MEQ/L (5-15); AST (GOT) 243 U/L (15-37); BICARBONATE 27.5 MEQ/L (21.0-32.0); BLOOD UREA NITROGEN 13 MG/DL (7-18); CHLORIDE 103 MEQ/L (98-107); GLOMERULAR FILTRATION RATE 86 ML/MIN (>89); MAGNESIUM 1.8 MG/DL (1.5-2.5); POTASSIUM 3.9 MEQ/L (3.5-5.1); SODIUM (NA) 137 MEQ/L (136-145)
[2017-06-20 05:48] LABS: ALKALINE PHOSPHATASE 123 U/L (45-117); ALT (GPT) 187 U/L (10-53); TOTAL BILIRUBIN ADULT 0.5 MG/DL (0.2-1.0)
[2017-06-20 05:51] LABS: CREATINE KINASE 33 U/L (26-192)
[2017-06-20 06:00] LABS: APTT (PATIENT) 27.7 SEC (24.3-30.1); INTERNATIONAL NORMALIZED RATIO 0.9 RATIO; PROTHROMBIN TIME - PATIENT 9.9 SEC (9.8-11.6)
[2017-06-20] MEDS: DOCUSATE SODIUM 50 MG/SENNA 8.6 MG TAB PO SCH ×2 (09:00→20:18)
[2017-06-20] MEDS: LIOTHYRONINE SODIUM 5 MCG TAB PO SCH (09:00)
[2017-06-20] MEDS: LOSARTAN 50 MG TAB PO SCH (09:25)
[2017-06-20] MEDS: CARVEDILOL 12.5 MG TAB PO SCH ×2 (09:25→20:18)
[2017-06-20] MEDS: TRIAMTERENE/HCTZ 37.5 MG/25 MG TAB PO SCH (09:27)
[2017-06-20] MEDS: FLUoxetine HCL 20 MG CAP PO SCH (09:27)
[2017-06-20] MEDS: SODIUM CHLORIDE 0.9% FLUSH 10 ML FLUSH IV FLUSH SCH ×2 (09:28→20:18)
[2017-06-20] MEDS: FAMOTIDINE 20 MG/2 ML VIAL IV PUSH SCH (09:28)
[2017-06-20] MEDS: niCARdipine INJ 25 MG in SODIUM CHLOR 0.9% 250 ML INJ 240 ML IV PRN ×4 (10:00→20:51)
--- NOTE | 2017-06-20 11:38 | HHI.CCPN ---
Subjective Remarks/Hospital Course 66-year-old female with history of hypertension, Graves' disease, presents for evaluation of frontal headache and left neck pain and tingling in her left arm. The patient reports that last last evening around 8pm she experienced a sudden onset of a frontal headache. She has checked her blood pressure which was extremely elevated. Patient took her blood pressure medication as prescribed. Her headache persisted throughout today and patient's blood pressure has been persistently elevated. She denies any chest pain, or tightness. However she has felt intermittently short of breath. She has had no nausea vomiting. No other focal deficits or weakness. 06/19: Afebrile. Currently resting in bed in no acute distress. No Episode of nausea overnight. Receive 1 dose of ketorolac 3 mg 1 overnight Subjective 06/20: Resting in bed in no acute distress. Currently on nicardipine drip at 5 mg an hour. Receiving hydromorphone 2.5 mg 2 doses of night for headache. Transaminases elevated this AM. Currently denies nausea Objective Vital Signs Date Time Temp Pulse Resp B/P (MAP) Pulse Ox O2 Delivery O2 Flow Rate FiO2 06/20/17 08:00 95 06/20/17 07:00 Room Air 06/20/17 06:00 68 06/20/17 04:00 98.3 10 145/65 (91) 06/19/17 21:30 21 06/19/17 07:00 2.00 Intake and Output 06/20/17 06/20/17 06/20/17 07:59 15:59 23:59 Intake Total 2193 ml Output Total 1000 ml Balance 1193 ml Result Diagram: 06/20/17 0438 06/20/17 0438 Imaging Last Impressions Renal Ultrasound 06/19/17 0000 Signed Impressions: Service Date/Time: Monday, June 19, 2017 11:27 - CONCLUSION: Normal examination. Nikos Plata MD Brain MRI 06/19/17 0000 Signed Impressions: Service Date/Time: Monday, June 19, 2017 13:32 - CONCLUSION: Punctate foci of altered signal in the region of the anterior fornix, potentially small foci of hemorrhage as suggested on the comparison CT. I concur with the recommendation for followup with CT. Nikos Plata MD Abdomen CTA 06/19/17 0000 Signed Impressions: Service Date/Time: Monday, June 19, 2017 14:21 - CONCLUSION: No evidence of renal artery stenosis Nikos Plata MD Head CT 06/18/17 0000 Signed Impressions: Service Date/Time: Sunday, June 18, 2017 21:09 - CONCLUSION: 1. Questionable small 4 mm hemorrhage near the foramen of Juarez on the left. This could be reevaluated with close followup CT. Bruce Manzo MD Objective Remarks GENERAL: 66-year-old AA female resting in bed in no acute distress SKIN: Warm and dry. No rash HEAD: Normocephalic. EYES: No scleral icterus. No injection or drainage. NECK: Supple, trachea midline. No JVD or lymphadenopathy. CARDIOVASCULAR: Regular rate and rhythm without murmurs, gallops, or rubs. RESPIRATORY: Breath sounds equal bilaterally. No accessory muscle use. GASTROINTESTINAL: Abdomen soft, non-tender, nondistended. MUSCULOSKELETAL: No improvement. BACK: Nontender without obvious deformity. NEURO EXAM: Cranial nerves II through XII grossly intact. Strength is equal and symmetric. Normal sensation. Gait was not assessed A/P Assessment and Plan Neuro/Psych: Tiny intracerebral hemorrhage - possibly Depression disorder NOS - CT brain 06/18 - Questionable small tiny about 4 mm close to foramina Monro - MRI brain 06/19 seems similar findings to 3 mm tiny hemorrhage - No surgical intervention indicated - Normal coags profile - Keep systolic Blood pressure control with SBP less than 140 - Further management per neurosurgery - Continue fluoxetine 20 mg by mouth daily for depression Holding aspirin 81 mg daily and ibuprofen 400 milligrams 3 times a day in light of possible acute intracerebral hemorrhage Acetaminophen 650 mg by mouth every 4 hours when necessary pain/fever Hydromorphone for pain CV: Hypertensive urgency Dyslipidemia Mitral valve prolapse Nonobstructive coronary artery disease -Increased carvedilol from 6.25 twice a day increased to 12.5 twice a day, losartan 100 mg daily and triamterene/hydrochlorothiazide 37.5/25 one tablet daily for hypertension Adding amlodipine 5 mg daily Holding ezetimibe 10 mg daily for dyslipidemia -Nicardipine drip to keep SBP less than 140 EKG revealed old Q waves in inferior leads. Left atrial enlargement. Troponin 0.023 2-D echo for hypertension ordered pending Dr. Banegas is her obstetrical nurse and she states menses for hypertension Resp: Obstructive sleep apnea - CPAP Nasal cannula if indicated to maintain saturations greater than or equal to 90% Incentive spirometry while awake As needed albuterol aerosols to 2 hours when necessary GI: Hypoalbuminemia Continue heart healthy diet Femoral to pain for GI prophylaxis Docusate sodium/senna 1 tablet twice a day for bowel regimen : No indication for Lovett catheter Endo: History of Graves' disease -history of radiation/radioactive iodine currently hypothyroid Continue levothyroxine 112 mcg 1 tablet daily and liothyronine 5 mg daily Check TSH Sliding-scale insulin if indicated to maintain euglycemia Renal: Creatinine currently within normal limits Monitor urine output Accurate I's and O's Heme: CBC within normal limits Does not meet threshold for blood transfusion Coags within normal limits ID: Monitor for infection FEN: Replace electrolytes as clinically indicated MSK: Chronic low back pain - history of ACE PT evaluate and treat/out of bed Access - Utilize peripheral IV. Central line if indicated Prophylaxis - GI - famotidine discontinued 06/20 - DVT - SCD/holding pharmacological prophylaxis in light of possible intracerebral hemorrhage Level II follow-up David Joshi MD Jun 20, 2017 11:38
[2017-06-20] MEDS ORDERED: amLODIPine BESYLATE 5 MG TAB PO ONE (11:45)
--- NOTE | 2017-06-20 16:58 | RADRPT ---
EXAM DATE/TIME: 06/20/2017 16:15 [facility] COMPARISON: CTA ABDOMEN W 3D RECON, June 19, 2017, 14:21. INDICATIONS : Hepatitis C. MEDICAL HISTORY : Hepatitis C. Amblyopia. Graves disease. Mitral valve prolapse. HTN. Bronchitis. Right lung nodule . Paresthesia. SURGICAL HISTORY : Appendectomy. Cholecystectomy. Hysterectomy. Cataract extraction. section. Radiation therapy . ENCOUNTER: Initial ACUITY: 1 day PAIN SCORE: 0/10 LOCATION: Bilateral upper quadrant MEASUREMENTS: LIVER: 15.0 cm length COMMON DUCT: 5 mm RIGHT KIDNEY: 10.0 x 4.2 x 5.0 cm SPLEEN: 7.9 cm length FINDINGS: LIVER: Normal echotexture without focal lesion or ductal dilatation. COMMON DUCT: No intraluminal mass or stone visualized. GALLBLADDER: Contains no stones, demonstrates no wall thickening or pericholecystic fluid. PANCREAS: The visualized portions are within normal limits. RIGHT KIDNEY: No hydronephrosis, stone or mass. SPLEEN: No focal lesion. CONCLUSION: Normal examination. Nikos Plata MD on June 20, 2017 at 16:44 Board Certified Radiologist. This report was verified electronically.
[2017-06-20] MEDS: HYDROmorphone HCL PF 1 MG/ML VIAL IV PUSH PRN (22:07)
[2017-06-21] VITALS (14 sets, daily range): BP systolic 117–149; BP diastolic 56–67; PULSE 60–74; RESP 16–18; TEMP 97.9–98.3; O2SAT 93–100
[2017-06-21] MEDS: CHLORHEXIDINE GLUCONATE 2 % 1 PACK (2 CLOTHS) TOP SCH (04:00)
[2017-06-21] MEDS: LABETALOL HCL 100 MG/20 ML VIAL IV PUSH PRN (05:33)
[2017-06-21 06:00] LABS: AUTOMATED NEUTROPHIL # 5.8 TH/MM3 (1.8-7.7); BASOPHIL % 0.2 % (0.0-2.0); EOSINOPHIL # 0.2 TH/MM3 (0-0.4); EOSINOPHIL % 1.9 % (0.0-4.0); HEMATOCRIT 36.8 % (35.0-46.0); HEMO FLAGS DIFF FINAL; LYMPH % 16.6 % (9.0-44.0); LYMPHOCYTE # 1.3 TH/MM3 (1.0-4.8); MEAN CELL VOLUME 96.5 FL (80.0-100.0); MEAN CORPUSCULAR HEMOGLOBIN 32.6 PG (27.0-34.0); MEAN CORPUSCULAR HGB CONC 33.8 % (32.0-36.0); MONO % 8.2 % (0.0-8.0); NEUT % 73.1 % (16.0-70.0); PLATELET COUNT 338 TH/MM3 (150-450); RED BLOOD COUNT 3.81 MIL/MM3 (4.00-5.30); RED CELL DISTRIBUTION WIDTH 14.7 % (11.6-17.2); WHITE BLOOD COUNT 7.9 TH/MM3 (4.0-11.0)
[2017-06-21 06:20] LABS: INTERNATIONAL NORMALIZED RATIO 0.9 RATIO
[2017-06-21 06:28] LABS: ANION GAP 4 MEQ/L (5-15); AST (GOT) 213 U/L (15-37); BICARBONATE 26.6 MEQ/L (21.0-32.0); BLOOD UREA NITROGEN 11 MG/DL (7-18); CHLORIDE 106 MEQ/L (98-107); GLOMERULAR FILTRATION RATE 86 ML/MIN (>89); MAGNESIUM 1.8 MG/DL (1.5-2.5); POTASSIUM 3.9 MEQ/L (3.5-5.1); SODIUM (NA) 137 MEQ/L (136-145)
[2017-06-21 06:29] LABS: ALT (GPT) 222 U/L (10-53)
[2017-06-21 06:31] LABS: ALKALINE PHOSPHATASE 144 U/L (45-117); TOTAL BILIRUBIN ADULT 0.5 MG/DL (0.2-1.0)
[2017-06-21 06:34] LABS: CREATINE KINASE 44 U/L (26-192)
[2017-06-21] MEDS: SODIUM CHLORIDE 0.9% FLUSH 10 ML FLUSH IV FLUSH SCH ×2 (09:00→21:00)
[2017-06-21] MEDS ORDERED: amLODIPine BESYLATE 5 MG TAB PO SCH (09:00)
[2017-06-21] MEDS: LIOTHYRONINE SODIUM 5 MCG TAB PO SCH (09:00)
[2017-06-21] MEDS: DOCUSATE SODIUM 50 MG/SENNA 8.6 MG TAB PO SCH ×2 (09:01→21:00)
[2017-06-21] MEDS: TRIAMTERENE/HCTZ 37.5 MG/25 MG TAB PO SCH (09:01)
[2017-06-21] MEDS: CARVEDILOL 12.5 MG TAB PO SCH ×2 (09:02→19:45)
[2017-06-21] MEDS: LOSARTAN 50 MG TAB PO SCH (09:02)
[2017-06-21] MEDS: LEVOTHYROXINE SODIUM 112 MCG TAB PO SCH (09:02)
[2017-06-21] MEDS: FLUoxetine HCL 20 MG CAP PO SCH (09:02)
[2017-06-21] MEDS: SODIUM CHLOR 0.9% 1000 ML INJ 1,000 ML IV SCH ×2 (11:27→19:45)
--- NOTE | 2017-06-21 12:52 | HHI.CCPN ---
Subjective Remarks/Hospital Course 66-year-old female with history of hypertension, Graves' disease, presents for evaluation of frontal headache and left neck pain and tingling in her left arm. The patient reports that last last evening around 8pm she experienced a sudden onset of a frontal headache. She has checked her blood pressure which was extremely elevated. Patient took her blood pressure medication as prescribed. Her headache persisted throughout today and patient's blood pressure has been persistently elevated. She denies any chest pain, or tightness. However she has felt intermittently short of breath. She has had no nausea vomiting. No other focal deficits or weakness. 06/19: Afebrile. Currently resting in bed in no acute distress. No Episode of nausea overnight. Receive 1 dose of ketorolac 3 mg 1 overnight 06/20: Resting in bed in no acute distress. Currently on nicardipine drip at 5 mg an hour. Receiving hydromorphone 2.5 mg 2 doses of night for headache. Transaminases elevated this AM. Currently denies nausea Subjective 06/21: Currently resting in bed. Receiving hydromorphone 0.5 milligrams IV 1 today. For headache. Otherwise received only a couple when necessary's for hypertension overnight. Objective Vital Signs Date Time Temp Pulse Resp B/P (MAP) Pulse Ox O2 Delivery O2 Flow Rate FiO2 06/21/17 12:03 97.9 60 16 146/62 (90) 100 06/21/17 07:32 21 06/21/17 07:00 Nasal Cannula 2.00 Intake and Output 06/21/17 06/21/17 06/22/17 08:00 16:00 00:00 Intake Total 1553 ml Output Total 650 ml Balance 903 ml Result Diagram: 06/21/17 0541 06/21/17 0541 Imaging Last Impressions Liver Ultrasound 06/20/17 0000 Signed Impressions: Service Date/Time: Tuesday, June 20, 2017 16:15 - CONCLUSION: Normal examination. Nikos Plata MD Renal Ultrasound 06/19/17 0000 Signed Impressions: Service Date/Time: Monday, June 19, 2017 11:27 - CONCLUSION: Normal examination. Nikos Plata MD Brain MRI 06/19/17 0000 Signed Impressions: Service Date/Time: Monday, June 19, 2017 13:32 - CONCLUSION: Punctate foci of altered signal in the region of the anterior fornix, potentially small foci of hemorrhage as suggested on the comparison CT. I concur with the recommendation for followup with CT. Nikos Plata MD Abdomen CTA 06/19/17 0000 Signed Impressions: Service Date/Time: Monday, June 19, 2017 14:21 - CONCLUSION: No evidence of renal artery stenosis Nikos Plata MD Head CT 06/18/17 0000 Signed Impressions: Service Date/Time: Sunday, June 18, 2017 21:09 - CONCLUSION: 1. Questionable small 4 mm hemorrhage near the foramen of Juarez on the left. This could be reevaluated with close followup CT. Bruce Manzo MD Objective Remarks GENERAL: 66-year-old AA female resting in bed in no acute distress SKIN: Warm and dry. No rash HEAD: Normocephalic. EYES: No scleral icterus. No injection or drainage. NECK: Supple, trachea midline. No JVD or lymphadenopathy. CARDIOVASCULAR: Regular rate and rhythm without murmurs, gallops, or rubs. RESPIRATORY: Breath sounds equal bilaterally. No accessory muscle use. GASTROINTESTINAL: Abdomen soft, non-tender, nondistended. MUSCULOSKELETAL: No improvement. BACK: Nontender without obvious deformity. NEURO EXAM: Cranial nerves II through XII grossly intact. Strength is equal and symmetric. Normal sensation. Gait was not assessed A/P Assessment and Plan Neuro/Psych: Tiny intracerebral hemorrhage - possibly Depression disorder NOS - CT brain 06/18 - Questionable small tiny about 4 mm close to foramina Monro - MRI brain 06/19 seems similar findings to 3 mm tiny hemorrhage - No surgical intervention indicated - Normal coags profile - Keep systolic Blood pressure control with SBP less than 140 - Further management per neurosurgery - Continue fluoxetine 20 mg by mouth daily for depression Holding aspirin 81 mg daily and ibuprofen 400 milligrams 3 times a day in light of possible acute intracerebral hemorrhage Acetaminophen 650 mg by mouth every 4 hours when necessary pain/fever Hydromorphone 0.5 mg as needed for pain Repeat head CT 06/23 follow-up tiny ic hemorrhage CV: Hypertensive urgency Dyslipidemia Mitral valve prolapse Nonobstructive coronary artery disease -Increased carvedilol from 6.25 twice a day increased to 12.5 twice a day, losartan 100 mg daily and triamterene/hydrochlorothiazide 37.5/25 one tablet daily for hypertension Adding amlodipine 5 mg daily on 06/20. Increased to 10 mg 08/22 Holding ezetimibe 10 mg daily for dyslipidemia -Nicardipine drip to keep SBP less than 140 EKG revealed old Q waves in inferior leads. Left atrial enlargement. Troponin 0.023 2-D echo for hypertension revealed EF 50%. No regional wall motion abnormality' s. Dr. Banegas is her decorative cutting machine tender and she states menses for hypertension Resp: Obstructive sleep apnea - CPAP Nasal cannula if indicated to maintain saturations greater than or equal to 90% Incentive spirometry while awake As needed albuterol aerosols to 2 hours when necessary GI: Hypoalbuminemia Continue heart healthy diet Femoral to pain for GI prophylaxis Docusate sodium/senna 1 tablet twice a day for bowel regimen : No indication for Lovett catheter Endo: History of Graves' disease -history of radiation/radioactive iodine currently hypothyroid Continue levothyroxine 112 mcg 1 tablet daily and liothyronine 5 mg daily Sliding-scale insulin if indicated to maintain euglycemia Renal: Creatinine currently within normal limits Monitor urine output Accurate I's and O's Heme: CBC within normal limits Does not meet threshold for blood transfusion Coags within normal limits ID: Monitor for infection FEN: Replace electrolytes as clinically indicated MSK: Chronic low back pain - history of ACE PT evaluate and treat/out of bed Access - Utilize peripheral IV. Central line if indicated Prophylaxis - GI - famotidine discontinued 06/20 - DVT - SCD/holding pharmacological prophylaxis in light of possible intracerebral hemorrhage Level II follow-up. Patient is stable from a critical care medicine standpoint. Assign care to hospitalist in a.m. 06/22 David Joshi MD Jun 21, 2017 12:52
--- NOTE | 2017-06-21 13:50 | ECHRPT ---
Indication: EF CHF CONCLUSIONS Normal left ventricular size. Wall thickness is normal. The left ventricular systolic function is low normal with an estimated ejection fraction in the rang e of 50- 55%. BP: / HR: Rhythm: MEASUREMENTS (Male / Female) Normal Values Technical Quality: 2D ECHO LV Diastolic Diameter PLAX 4.3 cm 4.2 - 5.9 / 3.9 - 5.3 cm LV Systolic Diameter PLAX 3.3 cm IVS Diastolic Thickness 1.0 cm 0.6 - 1.0 / 0.6 - 0.9 cm LVPW Diastolic Thickness 0.8 cm 0.6 - 1.0 / 0.6 - 0.9 cm LV Relative Wall Thickness 0.4 LA Systolic Diameter LX 3.1 cm 3.0 - 4.0 / 2.7 - 3.8 cm DOPPLER TR Peak Velocity 189.0 cm/s TR Peak Gradient 14.3 mmHg Right Atrial Pressure 5.0 mmHg Pulmonary Artery Systolic Pressu 19.3 mmHg Right Ventricular Systolic Press 19.3 mmHg FINDINGS LEFT VENTRICLE Normal left ventricular size. Wall thickness is normal. The left ventricular systolic function is low normal with an estimated ejection fraction in the rang e of 50- 55%. RIGHT VENTRICLE Normal right ventricular size and systolic function. LEFT ATRIUM The left atrial size is normal. RIGHT ATRIUM The right atrial size is normal. ATRIAL SEPTUM Normal atrial septal thickness without atrial level shunting by limited color doppler interrogation. AORTA The aortic root and proximal ascending aorta are normal in size on limited imaging. MITRAL VALVE Structurally normal mitral valve. No mitral valve stenosis or regurgitation. AORTIC VALVE Trileaflet aortic valve. No aortic valve stenosis or regurgitation. TRICUSPID VALVE Structurally normal tricuspid valve. No tricuspid valve stenosis or regurgitation. PULMONARY VALVE No pulmonary valve regurgitation or stenosis. VESSELS The inferior vena cava is normal in size. PERICARDIUM No pericardial effusion. Hugo Mercado MD, FACC, [facility] [place] (Electronically Signed) Final Date:21 June 2017 13:49
[2017-06-21] MEDS ORDERED: POTASSIUM CHLORIDE 8 MEQ CONTROLLED RELEASE TAB PO ONE (15:15)
[2017-06-21] MEDS: MAGNESIUM SULFATE 1 GM PREMIX 100 ML IV SCH ×2 (17:01→17:36)
[2017-06-21] MEDS: cloNIDine HCL 0.1 MG TAB PO PRN (19:45)
[2017-06-22] VITALS (13 sets, daily range): BP systolic 112–161; BP diastolic 58–80; PULSE 60–84; RESP 14–20; TEMP 97.8–98.6; O2SAT 95–100
[2017-06-22] MEDS: CHLORHEXIDINE GLUCONATE 2 % 1 PACK (2 CLOTHS) TOP SCH (03:14)
[2017-06-22 05:21] LABS: AUTOMATED NEUTROPHIL # 5.8 TH/MM3 (1.8-7.7); BASOPHIL % 0.3 % (0.0-2.0); EOSINOPHIL # 0.2 TH/MM3 (0-0.4); EOSINOPHIL % 2.8 % (0.0-4.0); HEMATOCRIT 36.5 % (35.0-46.0); HEMO FLAGS DIFF FINAL; LYMPH % 18.7 % (9.0-44.0); LYMPHOCYTE # 1.6 TH/MM3 (1.0-4.8); MEAN CELL VOLUME 97.2 FL (80.0-100.0); MEAN CORPUSCULAR HEMOGLOBIN 33.4 PG (27.0-34.0); MEAN CORPUSCULAR HGB CONC 34.4 % (32.0-36.0); MONO % 9.3 % (0.0-8.0); NEUT % 68.9 % (16.0-70.0); PLATELET COUNT 327 TH/MM3 (150-450); RED BLOOD COUNT 3.75 MIL/MM3 (4.00-5.30); RED CELL DISTRIBUTION WIDTH 14.8 % (11.6-17.2); WHITE BLOOD COUNT 8.4 TH/MM3 (4.0-11.0)
[2017-06-22 05:41] LABS: ALT (GPT) 184 U/L (10-53); ANION GAP 6 MEQ/L (5-15); AST (GOT) 98 U/L (15-37); BLOOD UREA NITROGEN 13 MG/DL (7-18); CHLORIDE 107 MEQ/L (98-107); GLOMERULAR FILTRATION RATE 101 ML/MIN (>89); MAGNESIUM 2.1 MG/DL (1.5-2.5); POTASSIUM 3.9 MEQ/L (3.5-5.1); SODIUM (NA) 141 MEQ/L (136-145)
[2017-06-22 05:50] LABS: ALKALINE PHOSPHATASE 129 U/L (45-117); FREE T4 1.08 NG/DL (0.76-1.46); TOTAL BILIRUBIN ADULT 0.4 MG/DL (0.2-1.0)
[2017-06-22] MEDS: cloNIDine HCL 0.1 MG TAB PO PRN (06:00)
[2017-06-22] MEDS: LEVOTHYROXINE SODIUM 112 MCG TAB PO SCH (06:00)
[2017-06-22] MEDS: LIOTHYRONINE SODIUM 5 MCG TAB PO SCH (09:00)
[2017-06-22] MEDS: LOSARTAN 50 MG TAB PO SCH (09:03)
[2017-06-22] MEDS: CARVEDILOL 12.5 MG TAB PO SCH ×2 (09:04→20:52)
[2017-06-22] MEDS: DOCUSATE SODIUM 50 MG/SENNA 8.6 MG TAB PO SCH ×2 (09:04→20:53)
[2017-06-22] MEDS: FLUoxetine HCL 20 MG CAP PO SCH (09:04)
[2017-06-22] MEDS: TRIAMTERENE/HCTZ 37.5 MG/25 MG TAB PO SCH (09:04)
[2017-06-22] MEDS: hydrALAZINE HCL 20 MG/ML VIAL IV PUSH PRN (09:05)
[2017-06-22] MEDS: SODIUM CHLORIDE 0.9% FLUSH 10 ML FLUSH IV FLUSH SCH ×2 (09:05→20:53)
[2017-06-22] MEDS: HYDROmorphone HCL PF 1 MG/ML VIAL IV PUSH PRN ×2 (13:42→23:11)
--- NOTE | 2017-06-22 15:58 | HHI.CCPN ---
Subjective Remarks/Hospital Course 66-year-old female with history of hypertension, Graves' disease, presents for evaluation of frontal headache and left neck pain and tingling in her left arm. The patient reports that last last evening around 8pm she experienced a sudden onset of a frontal headache. She has checked her blood pressure which was extremely elevated. Patient took her blood pressure medication as prescribed. Her headache persisted throughout today and patient's blood pressure has been persistently elevated. She denies any chest pain, or tightness. However she has felt intermittently short of breath. She has had no nausea vomiting. No other focal deficits or weakness. 06/19: Afebrile. Currently resting in bed in no acute distress. No Episode of nausea overnight. Receive 1 dose of ketorolac 3 mg 1 overnight 06/20: Resting in bed in no acute distress. Currently on nicardipine drip at 5 mg an hour. Receiving hydromorphone 2.5 mg 2 doses of night for headache. Transaminases elevated this AM. Currently denies nausea 06/21: Currently resting in bed. Receiving hydromorphone 0.5 milligrams IV 1 today. For headache. Otherwise received only a couple when necessary's for hypertension overnight. Subjective 06/22: Overnight received 10 mg IV hydralazine 2 doses 0.1 mg clonidine. Hypertension. Objective Vital Signs Date Time Temp Pulse Resp B/P (MAP) Pulse Ox O2 Delivery O2 Flow Rate FiO2 06/22/17 14:12 16 06/22/17 14:00 66 06/22/17 12:00 97.9 148/66 (93) 97 06/22/17 07:27 21 06/22/17 07:00 Room Air 06/21/17 07:00 2.00 Intake and Output 06/22/17 06/22/17 06/23/17 08:00 16:00 00:00 Intake Total 1371 ml Balance 1371 ml Result Diagram: 06/22/17 0443 06/22/17 0443 Imaging Last Impressions Liver Ultrasound 06/20/17 0000 Signed Impressions: Service Date/Time: Tuesday, June 20, 2017 16:15 - CONCLUSION: Normal examination. Nikos Plata MD Renal Ultrasound 06/19/17 0000 Signed Impressions: Service Date/Time: Monday, June 19, 2017 11:27 - CONCLUSION: Normal examination. Nikos Plata MD Brain MRI 06/19/17 0000 Signed Impressions: Service Date/Time: Monday, June 19, 2017 13:32 - CONCLUSION: Punctate foci of altered signal in the region of the anterior fornix, potentially small foci of hemorrhage as suggested on the comparison CT. I concur with the recommendation for followup with CT. Nikos Plata MD Abdomen CTA 06/19/17 0000 Signed Impressions: Service Date/Time: Monday, June 19, 2017 14:21 - CONCLUSION: No evidence of renal artery stenosis Nikos Plata MD Head CT 06/18/17 0000 Signed Impressions: Service Date/Time: Sunday, June 18, 2017 21:09 - CONCLUSION: 1. Questionable small 4 mm hemorrhage near the foramen of Juarez on the left. This could be reevaluated with close followup CT. Bruce Manzo MD Objective Remarks GENERAL: 66-year-old AA female resting in bed in no acute distress SKIN: Warm and dry. No rash HEAD: Normocephalic. EYES: No scleral icterus. No injection or drainage. NECK: Supple, trachea midline. No JVD or lymphadenopathy. CARDIOVASCULAR: Regular rate and rhythm without murmurs, gallops, or rubs. RESPIRATORY: Breath sounds equal bilaterally. No accessory muscle use. GASTROINTESTINAL: Abdomen soft, non-tender, nondistended. MUSCULOSKELETAL: No improvement. BACK: Nontender without obvious deformity. NEURO EXAM: Cranial nerves II through XII grossly intact. Strength is equal and symmetric. Normal sensation. Gait was not assessed A/P Assessment and Plan Neuro/Psych: Tiny intracerebral hemorrhage - possibly Depression disorder NOS - CT brain 06/18 - Questionable small tiny about 4 mm close to foramina Monro - MRI brain 06/19 seems similar findings to 3 mm tiny hemorrhage - No surgical intervention indicated - Normal coags profile - Keep systolic Blood pressure control with SBP less than 140 - Further management per neurosurgery - Continue fluoxetine 20 mg by mouth daily for depression Holding aspirin 81 mg daily and ibuprofen 400 milligrams 3 times a day in light of possible acute intracerebral hemorrhage Acetaminophen 650 mg by mouth every 4 hours when necessary pain/fever Hydromorphone 0.5 mg as needed for pain Repeat head CT 06/23 follow-up tiny ic hemorrhage CV: Hypertensive urgency Dyslipidemia Mitral valve prolapse Nonobstructive coronary artery disease -Increased carvedilol from 6.25 twice a day increased to 12.5 twice a day now to 25 mill grams twice a day, losartan 100 mg daily and triamterene/ hydrochlorothiazide 37.5/25 one tablet daily for hypertension amlodipine 5 mg daily on 06/20. Increased to 10 mg 06/22 Holding ezetimibe 10 mg daily for dyslipidemia -As needed hydralazine and clonidine to keep SBP less than 140 EKG revealed old Q waves in inferior leads. Left atrial enlargement. Troponin 0.023 2-D echo for hypertension revealed EF 50%. No regional wall motion abnormality' s. Dr. Banegas is her antisqueak chalker and she states menses for hypertension Resp: Obstructive sleep apnea - CPAP Nasal cannula if indicated to maintain saturations greater than or equal to 90% Incentive spirometry while awake As needed albuterol aerosols to 2 hours when necessary GI: Hypoalbuminemia Continue heart healthy diet Femoral to pain for GI prophylaxis Docusate sodium/senna 1 tablet twice a day for bowel regimen : No indication for Lovett catheter Endo: History of Graves' disease -history of radiation/radioactive iodine currently hypothyroid Continue levothyroxine 112 mcg 1 tablet daily and liothyronine 5 mg daily Sliding-scale insulin if indicated to maintain euglycemia Renal: Creatinine currently within normal limits Monitor urine output Accurate I's and O's Heme: CBC within normal limits Does not meet threshold for blood transfusion Coags within normal limits ID: Monitor for infection FEN: Replace electrolytes as clinically indicated MSK: Chronic low back pain - history of ACE PT evaluate and treat/out of bed Access - Utilize peripheral IV. Central line if indicated Prophylaxis - GI - famotidine discontinued 06/20 - DVT - SCD/holding pharmacological prophylaxis in light of possible intracerebral hemorrhage Level II follow-up. Patient is stable from a critical care medicine standpoint. Assign care to hospitalist in a.m. 06/23 David Joshi MD Jun 22, 2017 15:58
[2017-06-22 17:30] LABS: HEMOGLOBIN A1a 1.4 %; HEMOGLOBIN A1b 0.9 %; HEMOGLOBIN Ao 84.3 %; HEMOGLOBIN F 0.8 %; HEMOGLOBIN P3 3.9 %
[2017-06-23] VITALS (9 sets, daily range): BP systolic 109–160; BP diastolic 52–71; PULSE 58–66; RESP 14–20; TEMP 97.1–98.4; O2SAT 94–96
[2017-06-23] MEDS: CHLORHEXIDINE GLUCONATE 2 % 1 PACK (2 CLOTHS) TOP SCH (04:00)
[2017-06-23] MEDS: LEVOTHYROXINE SODIUM 112 MCG TAB PO SCH (05:13)
[2017-06-23] MEDS: FLUoxetine HCL 20 MG CAP PO SCH (07:45)
[2017-06-23] MEDS: LOSARTAN 50 MG TAB PO SCH (07:45)
[2017-06-23] MEDS: DOCUSATE SODIUM 50 MG/SENNA 8.6 MG TAB PO SCH (07:46)
[2017-06-23] MEDS: TRIAMTERENE/HCTZ 37.5 MG/25 MG TAB PO SCH (07:46)
[2017-06-23] MEDS: CARVEDILOL 12.5 MG TAB PO SCH (07:46)
[2017-06-23] MEDS: LIOTHYRONINE SODIUM 5 MCG TAB PO SCH (07:46)
[2017-06-23] MEDS: SODIUM CHLORIDE 0.9% FLUSH 10 ML FLUSH IV FLUSH SCH (07:48)
[2017-06-23 11:35] LABS: AUTOMATED NEUTROPHIL # 5.6 TH/MM3 (1.8-7.7); BASOPHIL % 0.3 % (0.0-2.0); EOSINOPHIL # 0.2 TH/MM3 (0-0.4); EOSINOPHIL % 2.8 % (0.0-4.0); HEMATOCRIT 35.9 % (35.0-46.0); HEMO FLAGS DIFF FINAL; LYMPH % 16.3 % (9.0-44.0); LYMPHOCYTE # 1.3 TH/MM3 (1.0-4.8); MEAN CELL VOLUME 96.8 FL (80.0-100.0); MEAN CORPUSCULAR HEMOGLOBIN 32.4 PG (27.0-34.0); MEAN CORPUSCULAR HGB CONC 33.5 % (32.0-36.0); MONO % 9.4 % (0.0-8.0); NEUT % 71.2 % (16.0-70.0); PLATELET COUNT 323 TH/MM3 (150-450); RED BLOOD COUNT 3.71 MIL/MM3 (4.00-5.30); WHITE BLOOD COUNT 7.9 TH/MM3 (4.0-11.0)
[2017-06-23 12:03] LABS: ALT (GPT) 149 U/L (10-53); ANION GAP 6 MEQ/L (5-15); AST (GOT) 65 U/L (15-37); BLOOD UREA NITROGEN 18 MG/DL (7-18); CHLORIDE 102 MEQ/L (98-107); GLOMERULAR FILTRATION RATE 63 ML/MIN (>89); POTASSIUM 3.6 MEQ/L (3.5-5.1); SODIUM (NA) 138 MEQ/L (136-145)
[2017-06-23 12:11] LABS: ALKALINE PHOSPHATASE 110 U/L (45-117); FREE T4 1.18 NG/DL (0.76-1.46); TOTAL BILIRUBIN ADULT 0.5 MG/DL (0.2-1.0)
--- NOTE | 2017-06-23 12:33 | RADRPT ---
EXAM DATE/TIME: 06/23/2017 11:47 [facility] COMPARISON: MRI BRAIN W/O CONTRAST, June 19, 2017, 13:32. CT BRAIN W/O CONTRAST, June 18, 2017, 21:09. INDICATIONS : Evaluate status of punctate hemorrhage. RADIATION DOSE: 34.35 CTDIvol (mGy) MEDICAL HISTORY : Cardiovascular disease. Hypertension. Graves disease and radiation to the thyroid. SURGICAL HISTORY : None. ENCOUNTER: Subsequent ACUITY: 1 week PAIN SCALE: 0/10 LOCATION: cranial TECHNIQUE: Multiple contiguous axial images were obtained of the head. Using automated exposure control and adj ustment of the mA and/or kV according to patient size, radiation dose was kept as low as reasonably a chievable to obtain optimal diagnostic quality images. DICOM format image data is available electro nically for review and comparison. FINDINGS: Small focal hemorrhage suspected along the septum pellucidum at the level of the foramen of Juarez is significantly less conspicuous. The brain is otherwise stable in appearance there is no evidence of infarct, edema or mass effect. Th e jugular size is stable. CONCLUSION: Decreasing/resolving suspected small focal hemorrhage centrally along the septum pellucidum as descri bed. No other significant abnormality. Ruben Frank MD on June 23, 2017 at 12:26 Board Certified Radiologist. This report was verified electronically.
[2017-06-23 13:07] LABS: HEMOGLOBIN A1a 1.2 %; HEMOGLOBIN A1b 0.9 %; HEMOGLOBIN Ao 84.1 %; HEMOGLOBIN F 0.8 %; HEMOGLOBIN LA1C 2.4 %; HEMOGLOBIN P3 3.9 %
[2017-06-23] MEDS ORDERED: COZA100T PO (14:06)
[2017-06-23] MEDS ORDERED: CARV25TA PO (14:06)
[2017-06-23] MEDS ORDERED: AMLO10 PO (14:06)
[2017-06-23] MEDS ORDERED: TRIA37.5 PO (14:06)
--- NOTE | 2017-06-23 14:06 | HHI.DS ---
Discharge Summary Admission Date Jun 18, 2017 at 22:33 Discharge Date: Jun 23, 2017 Admitting Diagnosis hypertensive urgency; questionable ICH Brief History - From Admission 58-year-old female with history of hypertension, Graves' disease, presents for evaluation of frontal headache and left neck pain and tingling in her left arm. The patient reports that last last evening around 8pm she experienced a sudden onset of a frontal headache. She has checked her blood pressure which was extremely elevated. Patient took her blood pressure medication as prescribed. Her headache persisted throughout today and patient's blood pressure has been persistently elevated. She denies any chest pain, or tightness. However she has felt intermittently short of breath. She has had no nausea vomiting. No other focal deficits or weakness. CBC/BMP: 06/23/17 1045 06/23/17 1045 Significant Findings Laboratory Tests Test 06/20/17 14:56 06/20/17 15:10 06/21/17 05:41 06/22/17 04:43 Red Blood Count 3.81 MIL/MM3 (4.00-5.30) 3.75 MIL/MM3 (4.00-5.30) Neutrophils (%) (Auto) 73.1 % (16.0-70.0) Monocytes (%) (Auto) 8.2 % (0.0-8.0) 9.3 % (0.0-8.0) Fibrinogen 425 mg/dL (227-377) Total Protein 6.2 GM/DL (6.4-8.2) 6.0 GM/DL (6.4-8.2) Albumin 2.7 GM/DL (3.4-5.0) 2.7 GM/DL (3.4-5.0) Calcium Level 8.4 MG/DL (8.5-10.1) Alkaline Phosphatase 144 U/L (45-117) 129 U/L (45-117) Aspartate Amino Transf (AST/SGOT) 213 U/L (15-37) 98 U/L (15-37) Alanine Aminotransferase (ALT/SGPT) 222 U/L (10-53) 184 U/L (10-53) Anion Gap 4 MEQ/L (5-15) Estimat Glomerular Filtration Rate 86 ML/MIN (>89) Test 06/23/17 10:45 Red Blood Count 3.71 MIL/MM3 (4.00-5.30) Neutrophils (%) (Auto) 71.2 % (16.0-70.0) Monocytes (%) (Auto) 9.4 % (0.0-8.0) Random Glucose 157 MG/DL (74-106) Total Protein 5.9 GM/DL (6.4-8.2) Albumin 2.6 GM/DL (3.4-5.0) Aspartate Amino Transf (AST/SGOT) 65 U/L (15-37) Alanine Aminotransferase (ALT/SGPT) 149 U/L (10-53) Estimat Glomerular Filtration Rate 63 ML/MIN (>89) Pt Condition on Discharge: Good Discharge Disposition: Discharge Home Discharge Instructions DIET: Follow Instructions for: Heart Healthy Diet Activities you can perform: Regular-No Restrictions Oscar South MD Jun 23, 2017 14:06
--- NOTE | 2017-06-23 14:07 | HHI.DCPOC ---
Discharge Care Plan Diagnosis: (1) Hypertensive urgency (2) ICH (intracerebral hemorrhage) (3) Headache Goals to Promote Your Health * To prevent worsening of your condition and complications * To maintain your health at the optimal level Directions to Meet Your Goals Take your medications as prescribed Follow your dietary instruction Follow activity as directed Keep your appointments as scheduled Take your immunizations and boosters as scheduled If your symptoms worsen call your PCP, if no PCP go to Urgent Care Center or Emergency Room Smoking is Dangerous to Your Health. Avoid second hand smoke Call the 24-hour hour crisis hotline for domestic abuse at Oscar South MD Jun 23, 2017 14:07
[2017-06-23] MEDS ORDERED: HYDR-3516 PO (15:01)
[2017-06-23 17:56] LABS: METANEPHRINE 24 COLLECTION DUR 24 h
== END 2017-06-23 15:19 | disposition home or self-care (01) | DRG 304 ==
LOC: NEPE 20:20 → NEDA 22:33 → N03B 06-19 00:15 → N05B 06-23 04:58
PROVIDERS: ADMIT Family Medicine; ATTEND Family Medicine
DX: I16.0 Hypertensive urgency (principal); I61.9 Nontraumatic intracerebral hemorrhage, unspecified; I10 Essential (primary) hypertension; M54.2 Cervicalgia; G89.29 Other chronic pain; M54.5 Low back pain; E78.5 Hyperlipidemia, unspecified; G47.33 Obstructive sleep apnea (adult) (pediatric); I34.1 Nonrheumatic mitral (valve) prolapse; I25.10 Atherosclerotic heart disease of native coronary artery without angina pectoris; E89.0 Postprocedural hypothyroidism; R53.82 Chronic fatigue, unspecified; F32.9 Major depressive disorder, single episode, unspecified; F41.9 Anxiety disorder, unspecified; Z87.891 Personal history of nicotine dependence; Z88.0 Allergy status to penicillin; Z88.5 Allergy status to narcotic agent; Z92.3 Personal history of irradiation
CPT/HCPCS: 70450; 70551; 74175; 76705; 76775; 76937; 80048; 80053; 80074; 81001; 82140; 82384; 82550; 83036; 83735; 83835; 84100; 84439; 84443; 84484; 85025; 85384; 85610; 85730; 87641; 93005; 93308; 94150; 96361; 96374; 96375; J1170; J0360; J0780; J1200; J1885; J3475; J7030; J7050; Q9967

== ENCOUNTER → 2017-12-19 | Outpatient (CLI) | payer MEDICARE ==
[~2017-12-19] MED LIST changes: +ACET-822 PO; +AMLO10 PO; -ASPI81TA23 PO; +CARV25TA PO; -CARV6.252 PO; -IBUP1TAB5 PO; +VERA1TAB17 PO
[2017-12-19 12:48] LABS: BILIRUBIN, URINE NEG (NEG); BLOOD, URINE NEG (NEG); GLUCOSE,URINE NEG (NEG); KETONE, URINE 15 mg/dL (NEG); NITRITE,URINE NEG (NEG); PH, URINE 5.5 (5.0-8.5); URINE COLOR YELLOW (YELLW/STRAW); URINE LEUKOCYTE ESTERASE NEG (NEG)
[2017-12-19 12:58] LABS: AMORPHOUS SEDIMENT, URINE MOD; SQUAMOUS EPITHELIAL CELL URINE > 8 /hpf (0-5)
== END ==
LOC: PHPRE 11:12
PROVIDERS: ATTEND Pain Medicine Interventional Pain Medicine
DX: Z01.812 Encounter for preprocedural laboratory examination (principal); M54.5 Low back pain
CPT/HCPCS: 36415; 81001